=== PATIENT | female | born 1935 | race Hispanic/Latino ===

== ENCOUNTER 2017-03-06 12:01 | Outpatient (CLI) | payer MEDICARE ==
--- NOTE | 2017-03-06 16:24 | Mammography Report ---
BONE DEXA:03/06/17 12:01:00 CLINICAL: Postmenopausal with vitamin D deficiency and hypercalcemia. COMPARISON: 05/04/00 TECHNIQUE: Two site bone DEXA performed on an Hologic scanner. FINDINGS: The average BMD of the lumbar spine L1-L4 is 1.558g/cm squared with a T-score of +4.6 and a Z-score of 7.5. This compares to 1.208g/cm squared on the last exam and represents a 29.0% change from the previous baseline. The average BMD of the left hip is 1.038g/cm squared with a T-score of +0.8 and a Z-score of +3.0. This compares to 1.154g/cm squared on the last exam and represents a -10.1% change from the previous baseline. IMPRESSION: 1. WHO classification: Normal with average fracture risk based on spine measurements. However, the BMD measurement is markedly elevated with a pronounced increase in density compared to the prior exam. I question whether the high values may be related to renal osteodystrophy or some other metabolic bone disease. 2. WHO classification: Normal with average fracture risk based on left hip measurements. Although the BMD is within the normal range, there is a significant decline in BMD compared to the prior exam. RECOMMENDATION: Clinical correlation and routine screening. DEFINITIONS: BMD = Bone Mineral Density T-score = BMD related to mean peak bone mass of young adult (mean expressed in Standard Deviation) Z-score = Age matched BMD expressed in SD World Health Organization (WHO) Diagnostic Criteria Normal T-score > -1 SD Osteopenia T-score between -1 and -2.4 SD Osteoporosis T-score -2.5 SD or below NOTE: BMD is not the only risk factor for fracture; also consider factors such as the patient's age, risk of falling, previous osteoporotic fracture, family history of osteoporotic fractures, current smoker, and low body weight. Z-scores are not calculated if >80 years of age.
== END 2017-03-06 12:02 | disposition home or self-care (01) ==
LOC: MAMMO 12:01
PROVIDERS: ATTEND Internal Medicine
DX: E55.9 Vitamin D deficiency, unspecified (principal); Z78.0 Asymptomatic menopausal state; Z87.891 Personal history of nicotine dependence
CPT/HCPCS: 77080

== ENCOUNTER 2020-03-30 12:23 | Outpatient (CLI) | payer MEDICARE, BC ==
--- NOTE | 2020-03-30 17:26 | Mammography Report ---
DIGITAL SCREENING MAMMOGRAM WITH CAD, 03/30/2020 INDICATION: Routine screening mammography. TECHNIQUE: Digital bilateral 2D mammography was obtained in the craniocaudal and mediolateral obliq ue projections. This examination was interpreted with the benefit of Computer-Aided Detection analysi s. COMPARISON: 03/24/2019. 02/27/2018. FINDINGS: Breast Density: The breasts are heterogeneously dense, which may obscure small masses. There is no evidence of dominant mass, suspicious calcifications or architectural distortion in eithe r breast. Both breasts contain benign calcification. IMPRESSION: Follow up recommendation: Routine yearly BI-RADS Category 2: Benign. A "normal" or negative report should not discourage follow up or biopsy of a clinically significant f inding. A written summary of these findings will be mailed to the patient. The patient will be entered into a mammography reporting system which will generate a reminder letter for the patient's next appointmen t at the appropriate interval. The [employer] recommends yearly mammograms starting at age 40 and continuing as l truong as a woman is in good health. Breast MRI is recommended for women with an approximate 20-25% or greater lifetime risk of breast cancer, including women with a strong family history of breast or ova morris cancer or who have been treated for Hodgkin's disease. Signer Name: Kg Sultana MD Signed: 03/30/2020 5:22 PM Workstation Name: [id number]
== END 2020-03-30 12:24 | disposition home or self-care (01) ==
LOC: SPVWC 12:23
PROVIDERS: ATTEND Surgery
DX: Z12.31 Encounter for screening mammogram for malignant neoplasm of breast (principal)
CPT/HCPCS: 77067

== ENCOUNTER 2020-09-23 12:24 | Outpatient (CLI) | payer MEDICARE, BC ==
--- NOTE | 2020-09-23 15:23 | Mammography Report ---
DEXA BONE DENSITY SCAN INDICATION / CLINICAL INFORMATION: DISORDERS OF BONE DENSITY. 84 years Female COMPARISON: 03/06/2017 LUMBAR SPINE, L1-L4: - Bone mineral density (BMD) = 1.628 g/cm2. - T-score = 5.3 Change (%) since most recent prior (if available): 4.5% increase LEFT HIP, NECK : - Bone mineral density (BMD) = 0.879 g/cm2. - T-score = 0.3 Change (%) since most recent prior (if available): 0.5% increase IMPRESSION: 1. WHO Classification: Normal bone density. Fracture Risk: Not Increased. Note: 10-Year Fracture Risk (FRAX) not reported. This DEXA unit lacks FRAX functionality. BMD Reporting Guidelines (ISCD, 2015) BMD Reporting in Postmenopausal Women and in Men Age 50 and Older - T-scores are preferred. - The WHO densitometric classification is applicable. BMD Reporting in Females Prior to Menopause and in Males Younger Than Age 50 - Z-scores, not T-scores, are preferred. This is particularly important in children. - A Z-score of -2.0 or lower is defined as below the expected range for age, and a Z-score above -2.0 is within the expected range for age. - Osteoporosis cannot be diagnosed in men under age 50 on the basis of BMD alone. - The WHO diagnostic criteria may be applied to women in the menopausal transition. http://www.iscd.org/official-positions/3482-yfue-axsyvewy-positions-adult/ Signer Name: Jose G Forte MD Signed: 09/23/2020 3:19 PM Workstation Name: [email or web address]
== END 2020-09-23 12:25 | disposition home or self-care (01) ==
LOC: MAMMO 12:24
PROVIDERS: ATTEND Obstetrics & Gynecology Gynecology
DX: Z13.820 Encounter for screening for osteoporosis (principal); M85.80 Other specified disorders of bone density and structure, unspecified site; M81.0 Age-related osteoporosis without current pathological fracture
CPT/HCPCS: 77080